=== PATIENT | female | born 1980 | race African-American/Black ===

== ENCOUNTER 2022-02-15 20:05 | Observation (INO) | payer OTHER ==
[2022-02-15 20:39] LABS: BASO % 0.7 % (0-2.0); EOS % 1.1 % (0-4.5); HEMATOCRIT 14.5 % (32.4-45.2); HEMOGLOBIN 4.2 G/dL (10.7-15.3); LYMPH % 16.7 % (8-40); MCHC 28.9 g/dl (32.0-36.0); MEAN CELL VOLUME 66.8 fl (80-96); MEAN PLT VOLUME 8.4 fl (7.5-11.1); MONO % 9.4 % (3.8-10.2); NEUT % 72.1 % (42.8-82.8); PLATELET COUNT 295.4 10^3/uL (134-434); RBC 2.17 10^6/uL (3.60-5.2); RDW 34.1 % (11.6-15.6); WHITE BLOOD COUNT 7.6 10^3/uL (4.0-10.8)
[2022-02-15 20:47] LABS: ALBUMIN 3.7 g/dl (3.4-5.0); BILIRUBIN,TOTAL 0.4 mg/dl (0.2-1); CALCIUM 8.8 mg/dl (8.5-10); CREATININE 0.5 mg/dl (0.55-1.3); TOT PROT 6.6 g/dl (6.4-8.2)
[2022-02-15 20:48] LABS: MCH 19.3 pg (25.7-33.7)
[2022-02-15 22:11] LABS: ANISOCYTOSIS 1+
[2022-02-15 22:12] LABS: PLATELET ESTIMATE ADEQUATE
[2022-02-16 02:19] VITALS: BMI 22.8
[2022-02-16 09:01] LABS: CREATININE 0.5 mg/dl (0.55-1.3)
[2022-02-16 09:04] LABS: HEMATOCRIT 19.9 % (32.4-45.2); HEMOGLOBIN 6.4 G/dL (10.7-15.3); MCH 23.3 pg (25.7-33.7); MCHC 32.4 g/dl (32.0-36.0); MEAN CELL VOLUME 72.2 fl (80-96); MEAN PLT VOLUME 8.4 fl (7.5-11.1); PLATELET COUNT 266.2 10^3/uL (134-434); RBC 2.76 10^6/uL (3.60-5.2); RDW 31.5 % (11.6-15.6); WHITE BLOOD COUNT 7.1 10^3/uL (4.0-10.8)
[2022-02-16] MEDS ORDERED: FERROUS SO4 325 MG TABLET (FP) PO SCH (10:00)
[2022-02-16] MEDS ORDERED: FUROSEMIDE 40 MG/4 ML INJECTABLE VIAL IVPUSH ONE ×2 (11:45→17:53)
[2022-02-16 12:51] LABS: TARGET CELLS 1+
[2022-02-16] MEDS ORDERED: PANTOPRAZOLE SODIUM 40 MG VIAL IVPUSH SCH (18:00)
[2022-02-16 20:39] LABS: HEMOGLOBIN 9.9 G/dL (10.7-15.3); MCH 24.1 pg (25.7-33.7); MCHC 32.9 g/dl (32.0-36.0); MEAN CELL VOLUME 73.1 fl (80-96); MEAN PLT VOLUME 9.3 fl (7.5-11.1); PLATELET COUNT 129.3 10^3/uL (134-434); RBC 4.09 10^6/uL (3.60-5.2); WHITE BLOOD COUNT 9.1 10^3/uL (4.0-10.8)
[2022-02-16 20:42] LABS: HEMATOCRIT 29.9 % (32.4-45.2); RDW 29.4 % (11.6-15.6)
[2022-02-16 21:25] VITALS: BP 131/87; PULSE 90; TEMP 99
== END 2022-02-16 20:45 | disposition home or self-care (01) ==
LOC: FER 20:05 → FM/S 21:05
PROVIDERS: ADMIT Hospitalist; ATTEND Nurse Practitioner Acute Care
PROC: 3E033GC Introduction of Other Therapeutic Substance into Peripheral Vein, Percutaneous Approach (ICD-10-PCS; principal; 2022-02-15)
PROC: 30233N1 Transfusion of Nonautologous Red Blood Cells into Peripheral Vein, Percutaneous Approach (ICD-10-PCS; 2022-02-15)
DX: D50.9 Iron deficiency anemia, unspecified (principal); K21.9 Gastro-esophageal reflux disease without esophagitis; Z20.822 Contact with and (suspected) exposure to COVID-19; Z98.84 Bariatric surgery status; R06.02 Shortness of breath; Z88.0 Allergy status to penicillin; Z88.1 Allergy status to other antibiotic agents
CPT/HCPCS: 36415; 36430; 71045-TC-FY; 80048; 80053; 82728; 83540; 83550; 85025; 85027; 86850; 86900; 86901; 86922; 93005; 96374; 96376; 99285-25; C9803-CS; G0378; P9058; U0003; U0005